=== PATIENT | male | born 1955 | race African-American/Black ===

== ENCOUNTER 2019-12-30 08:52 | Emergency (ER) | payer OTHER ==
[~2019-12-30] VITALS: Ht 193 cm; Wt 99.8 kg
[~2019-12-30 08:52] MED LIST: ULTRAM 50MG TAB50 MG PO
[2019-12-30 08:53] VITALS: BP 128/65
[2019-12-30] MEDS ORDERED: FLAGYL500 M1 PO (09:15)
== END 2019-12-30 09:27 | disposition home or self-care (01) ==
LOC: ER 08:52
DX: K05.00 Acute gingivitis, plaque induced (principal)